=== PATIENT | female | born 1975 | race Hispanic/Latino ===

== ENCOUNTER 2018-10-01 11:28 | Day surgery (SDC) | payer OTHER ==
[2018-10-01] MEDS ORDERED: NA CHLORIDE 0.9% 1,000 ML ONE (11:42)
[2018-10-01] MEDS ORDERED: PROPOFOL 200 MG/20 ML VIAL IV ONE (12:33)
[2018-10-01] MEDS ORDERED: MIDAZOLAM HCL 2 MG/2 ML INJ ONE (12:33)
[2018-10-01] MEDS ORDERED: LIDOCAINE 2% MPF 5 ML VIAL ONE (12:33)
[2018-10-01] MEDS ORDERED: FENTANYL CITR 100 MCG/2 ML ONE (12:33)
[2018-10-01 12:46] LABS: Specific Gravity 1.015 (1.005-1.030)
[2018-10-01] MEDS ORDERED: LIDOCAINE 1% W/EPI 1:100,000 MDV 20 ML VIAL ONE (12:50)
[2018-10-01] MEDS ORDERED: KETOROLAC 30 MG/ML INJ ONE (13:49)
--- NOTE | 2018-10-02 00:48 | OP ---
Date of Procedure: 10/01/2018 Surgeon: Diana Magaña MD Preoperative Diagnoses: Menorrhagia, thickened endometrium. Postoperative Diagnoses: Menorrhagia, thickened endometrium. Procedure Performed: Hysteroscopy, dilation and curettage. Anesthesia: MAC plus paracervical block. Specimens: Endometrial curettings. Complications: No complications. Drains: No drains. Condition: Stable. Uterine cavity anteflexed endometrium unremarkable. Both tubal ostia were visualized, cavity empty. Moderate amount of specimen was obtained for curettings that were sent to pathology. Description Of Procedure: After informed consent was verified, patient was taken back to the OR, davis kevin in a supine fashion on the operating table. MAC was given. Placed in a dorsal lithotomy positio n using Yellofin stirrups. Pelvic exam performed. Uterus anteflexed. Speculum was placed to expose the cervix and anterior lip injected with 1% lidocaine mixed with 1:100,000 epinephrine 10 mL and 5 mL each at 4 o'clock and 8 o'clock positions at the cervicovaginal junction for a paracervical block. Prep x3 with Betadine was done. SlimLine diagnostic hysteroscope, 30-degree lens normal saline was used to traverse the cervical canal under direct vision and uterine cavity was entered. The cavity was empty. Endometrium unremarkable. Both tubal ostia visualized. Scope removed, endometrial curet tings performed with a 0 curette, handed off for permanent pathology. Instruments removed. Instrume nt, needle, and sponge counts were done and were correct at the end of the case. Patient tolerated t he procedure well. She will follow up with me in 1 week. We will decide the best route of treatment for this patient for her menorrhagia. Her FSH level was 104, so possibly an ablation or an IUD. TORIN/ESTEFANIA Voice ID: [id number] Report ID: [id number]
== END 2018-10-01 14:52 | disposition home or self-care (01) ==
LOC: OR 11:28
PROVIDERS: ATTEND Obstetrics & Gynecology
PROC: 0UJD8ZZ Inspection of Uterus and Cervix, Via Natural or Artificial Opening Endoscopic (ICD-10-PCS; 2018-10-01)
PROC: 0UDB7ZX Extraction of Endometrium, Via Natural or Artificial Opening, Diagnostic (ICD-10-PCS; principal; 2018-10-01 12:30)
DX: N92.6 Irregular menstruation, unspecified (principal); E11.9 Type 2 diabetes mellitus without complications; E78.00 Pure hypercholesterolemia, unspecified; K21.9 Gastro-esophageal reflux disease without esophagitis; Z98.84 Bariatric surgery status; Z98.51 Tubal ligation status; Z83.3 Family history of diabetes mellitus; Z82.3 Family history of stroke; Z80.9 Family history of malignant neoplasm, unspecified
CPT/HCPCS: 81025; 82962 ×2; 88305; 58558; J2704; J2250; J3010; J7030